=== PATIENT | male | born 1990 | race Caucasian/White ===

== ENCOUNTER 2017-02-15 14:18 | Emergency (ER) | payer OTHER ==
[2017-02-15 15:58] LABS: BASO % 0.4 % (0.2-1.2); EOS # 0.3 10_X3_uL (0.0-0.5); GRAN # 7.1 10_X3_uL (1.8-5.4); GRAN % 70.6 % (34.0-67.9); HEMATOCRIT 43.6 % (40-51); HEMOGLOBIN 15.2 g/dL (13.7-17.5); LYMPH # 1.7 10_X3_uL (1.3-3.6); LYMPH % 16.9 % (21.8-53.1); MEAN CORPUSCULAR HGB CONC 34.9 g/dL (32.0-36.0); MEAN CORPUSCULAR VOLUME 91.8 fL (79-92); MEAN PLATELET VOLUME 10.2 fl (7.5-11.5); MONO # 0.9 10_X3_uL (0.3-0.8); MONO % 9.1 % (5.3-12.2); PLATELET COUNT 242 x10_3/uL (163-337); RED BLOOD COUNT 4.75 x10_6/uL (4.6-6.1); RED CELL DISTRIBUTION WIDTH 12.9 % (11.6-14.4)
[2017-02-15 16:02] LABS: ALBUMIN 4.9 gm/dL (3.4-5.0); ALKALINE PHOSPHATASE 69 U/L (50-136); ALT/SGPT 21 U/L (7.53-40.17); AST/SGOT 24 U/L (6.66-35.34); BILIRUBIN,TOTAL 0.76 mg/dL (0.0-1.0); BLOOD UREA NITROGEN 16 mg/dL (7-18); CARBON DIOXIDE 29 mmol/L (21-32); CREATININE 0.8 mg/dL (0.6-1.3); GLUCOSE,RANDOM 88 mg/dL (70-99); POTASSIUM 4.2 mmol/L (3.5-5.1); SODIUM 138 mmol/L (136-145); TOTAL PROTEIN 7.9 gm/dL (6.4-8.2)
== END 2017-02-15 17:16 | disposition home or self-care (01) ==
LOC: ER 14:18
PROVIDERS: Emergency Medicine
DX: R11.0 Nausea (principal); J45.909 Unspecified asthma, uncomplicated; F17.210 Nicotine dependence, cigarettes, uncomplicated
CPT/HCPCS: 36415; 80053; 85025; 96361; 96374; 99070; 99283; 99283-25